=== PATIENT | female | born 1975 | race Caucasian/White ===

== ENCOUNTER 2017-05-09 11:01 | Emergency (ER) | payer MEDICAID ==
--- NOTE | 2017-05-09 12:09 | UC ---
Respiratory Complaint HPI - HPI Summary HPI Summary: cough x 10 days + chest congestion , wheezing , nasal congestion , pnd no fever, no chills , no sob - History of Current Complaint Chief Complaint: UCRespiratory Stated Complaint: CONGESTION COUGH SINUS Time Seen by Provider: 05/09/17 12:01 Hx Obtained From: Patient Hx Last Menstrual Period: unknown, uterine ablation ?: No Onset/Duration: Gradual Onset, Lasting Days - 10, Still Present Timing: Constant Severity Initially: Moderate Severity Currently: Moderate Character: Cough: Nonproductive Aggravating Factors: Exertion, Deep Breaths Alleviating Factors: Nothing Associated Signs And Symptoms: Positive: Wheezing, URI, Nasal Congestion, Sinus Discomfort. Negative: Dyspnea, Fever, Chills, Pleuritic Chest Pain, Hemoptysis , Dizziness, Calf Pain, Calf Swelling, Edema - Allergies/Home Medications Allergies/Adverse Reactions: Allergies Allergy/AdvReac Type Severity Reaction Status Date / Time No Known Allergies Allergy Verified 05/09/17 11:27 Home Medications: Home Medications Albuterol HFA INHALER* [Ventolin HFA Inhaler*] 2 puff INH Q6H 05/09/17 [History Confirmed 05/09/17] Benzonatate CAP* [Tessalon 100 MG CAP*] 100 mg PO TID 05/09/17 [History Confirmed 05/09/17] Fluticasone NASAL * [Flonase *] 2 spray BOTH NARES DAILY 05/09/17 [History Confirmed 05/09/17] Hchwwcaxvzqpr-Muyyaxdyuz-Ohyyc [Vicks Dayquil/Nyquil Cold] 1 mis PO DAILY WITH MEAL 05/09/17 [History Confirmed 05/09/17] PMH/Surg Hx/FS Hx/Imm Hx Previously Healthy: Yes - Surgical History Surgical History: Yes Surgery Procedure, Year, and Place: uterine ablation. appendectomy. choley. tubal ligation - Family History Known Family History: Negative: Diabetes - Social History Alcohol Use: Occasionally Substance Use Type: None Smoking Status (MU): Heavy Every Day Tobacco Smoker Type: Cigarettes Amount Used/How Often: 1/2 ppd - Immunization History Most Recent Influenza Vaccination: no Review of Systems Constitutional: Negative Skin: Negative Eyes: Negative ENT: Nasal Discharge, Sinus Congestion, Sinus Pain/Tenderness Respiratory: Cough Cardiovascular: Negative Is Patient Immunocompromised?: No All Other Systems Reviewed And Are Negative: Yes Physical Exam Triage Information Reviewed: Yes Appearance: Well-Appearing, No Pain Distress, Well-Nourished Vital Signs: Initial Vital Signs Temp 97.8 F 05/09/17 11:23 Pulse 66 05/09/17 11:23 Resp 16 05/09/17 11:23 BP 116/73 05/09/17 11:23 Pulse Ox 100 05/09/17 11:23 Vital Signs Reviewed: Yes Eyes: Positive: Conjunctiva Clear ENT: Positive: Normal ENT inspection, Pharyngeal erythema, Nasal congestion, Nasal drainage Neck exam: Normal Neck: Positive: Supple, Nontender Respiratory: Positive: Chest non-tender, Lungs clear, Normal breath sounds Cardiovascular: Positive: RRR, No Murmur, Pulses Normal Skin Exam: Normal UC Diagnostic Evaluation - Laboratory O2 Sat by Pulse Oximetry: 100 Respiratory Course/Dx - Differential Dx/Diagnosis Provider Diagnoses: bronchitis Discharge - Discharge Plan Condition: Stable Disposition: HOME Prescriptions: Albuterol HFA INHALER* [Ventolin HFA Inhaler*] 2 puff INH Q6H PRN #1 mdi PRN Reason: Wheezing Azithromycin TAB* [Zithromax TAB (Z-JIMI) 250 mg #6 tabs] 2 tab PO .TODAY, THEN 1 DAILY #1 jimi Benzonatate [TESSALON 200 MG CAP] 200 mg PO Q8H #21 cap Patient Education Materials: Acute Bronchitis (ED) Referrals: Princess Armstrong PA [Primary Care Provider] - If Needed
== END 2017-05-09 12:12 | disposition home or self-care (01) ==
LOC: UCCORT 11:01
DX: J40 Bronchitis, not specified as acute or chronic (principal); F17.210 Nicotine dependence, cigarettes, uncomplicated
CPT/HCPCS: 99202; G0463

== ENCOUNTER 2017-08-31 07:58 | Emergency (ER) | payer OTHER ==
[2017-08-31 08:18] VITALS: BP 104/66
--- NOTE | 2017-08-31 09:26 | UC ---
Respiratory Complaint HPI - HPI Summary HPI Summary: 42F with cough. Pt went to her pcp on Monday, dx with bronchitis and was put on prednisone and zpak, tessalon pearls. pt is here for re-evaluation because she is not feeling better. States that she feels that her sx are more severe, wheezing a lot, pain in back and chest that is severe with coughing. Missed work. Cough not improved much. not worsen. no xray done. had ablation 2 years ago no . [ End ] - History of Current Complaint Chief Complaint: UCRespiratory Stated Complaint: COUGH Time Seen by Provider: 08/31/17 09:24 Hx Obtained From: Patient Hx Last Menstrual Period: ablasion Onset/Duration: Gradual Onset Timing: Constant Severity Initially: Moderate Severity Currently: Moderate Pain Intensity: 9 Character: Cough: Productive - Allergies/Home Medications Allergies/Adverse Reactions: Allergies Allergy/AdvReac Type Severity Reaction Status Date / Time No Known Allergies Allergy Verified 08/31/17 08:18 PMH/Surg Hx/FS Hx/Imm Hx Previously Healthy: Yes Respiratory History: Bronchitis - Surgical History Surgical History: Yes Surgery Procedure, Year, and Place: uterine ablation. appendectomy. choley. tubal ligation - Family History Known Family History: Negative: Diabetes - Social History Occupation: Employed Full-time Alcohol Use: Occasionally Substance Use Type: None Smoking Status (MU): Heavy Every Day Tobacco Smoker Type: Cigarettes Amount Used/How Often: 1/2 ppd Cessation Counseling: Patient Advised to Stop - Immunization History Most Recent Influenza Vaccination: no Review of Systems Constitutional: Fatigue ENT: Nasal Discharge, Sinus Congestion Respiratory: Cough - with wheeze Is Patient Immunocompromised?: No All Other Systems Reviewed And Are Negative: Yes Physical Exam Triage Information Reviewed: Yes Appearance: Well-Appearing, No Pain Distress, Well-Nourished Vital Signs: Initial Vital Signs Temp 98.9 F 08/31/17 08:13 Pulse 93 08/31/17 08:13 Resp 18 08/31/17 08:13 BP 104/66 08/31/17 08:13 Pulse Ox 96 08/31/17 08:13 Vital Signs Reviewed: Yes Eye Exam: Normal ENT Exam: Normal Dental Exam: Normal Neck exam: Normal Neck: Positive: 1 Respiratory Exam: Normal Respiratory: Positive: Chest non-tender, Lungs clear, Normal breath sounds, No respiratory distress, No accessory muscle use Cardiovascular Exam: Normal Musculoskeletal Exam: Normal Neurological Exam: Normal Psychological Exam: Normal Skin Exam: Normal UC Diagnostic Evaluation - Laboratory O2 Sat by Pulse Oximetry: 96 Respiratory Course/Dx - Course Course Of Treatment: IMPRESSION: NO ACTIVE DISEASE. - Differential Dx/Diagnosis Differential Diagnosis/HQI/PQRI: Bronchitis, Influenza, Lower Resp Infection, Sinusitis Provider Diagnoses: Bronchitis Discharge - Discharge Plan Condition: Good Disposition: HOME Prescriptions: Guaifenesin-Codeine [Cheratussin AC] 5 ml PO Q6H PRN #1 bottle MDD 20 PRN Reason: Cough Patient Education Materials: Acute Bronchitis (ED) Forms: *Work Release Referrals: Princess Armstrong PA [Primary Care Provider] - 4 Days
--- NOTE | 2017-08-31 09:51 | RAD ---
INDICATION: Cough COMPARISON: None TECHNIQUE: PA and lateral dual-energy views were obtained. FINDINGS: Bones/Soft Tissues: There are no acute bony findings. Cardiomediastinal: The cardiomediastinal silhouette is normal. Lungs: There are no infiltrates. Pleura: There are no pleural effusions. Other: None IMPRESSION: NO ACTIVE DISEASE.
== END 2017-08-31 10:31 | disposition home or self-care (01) ==
LOC: UCCORT 07:58
DX: J40 Bronchitis, not specified as acute or chronic (principal); F17.210 Nicotine dependence, cigarettes, uncomplicated
CPT/HCPCS: 71046; 99212; G0463

== ENCOUNTER 2018-05-06 17:20 | Emergency (ER) | payer SELFPAY ==
[2018-05-06] MEDS ORDERED: Albuterol 2.5 MG/3 ML NEB.SOL* (0.083%) INH ONE (17:41)
[2018-05-06] MEDS ORDERED: methylPREDNISolone 125 MG* 2 ML VIAL IV ONE (17:56)
--- NOTE | 2018-05-06 18:08 | RAD ---
INDICATION: Chest pain, cough, shortness of breath. History of asthma and tobacco use. COMPARISON: August 31, 2017 TECHNIQUE: Dual energy PA and routine lateral views of the chest were obtained. REPORT: Elevated lung volumes. No focal pulmonary lesion, compelling alveolar consolidation, pleural effusion, pneumothorax. The heart, pulmonary vasculature, and mediastinal contours are unremarkable. Unremarkable soft tissue contours and osseous structures. IMPRESSION: #. Stigmata of obstructive lung disease. No acute pulmonary or cardiac process evident.
[2018-05-06 18:49] VITALS: BP 151/70
--- NOTE | 2018-05-06 18:55 | ED ---
Respiratory - HPI Summary HPI Summary: started as sore throat days ago , now with increasing shortness of breath and wheezing with no improvement with multiple doses of albuterol - History of Current Complaint Chief Complaint: UCRespiratory Stated Complaint: DIFFICULTY BREATHING Time Seen by Provider: 05/06/18 17:24 Hx Obtained From: Patient Onset/Duration: Sudden Onset Timing: Constant Initial Severity: Severe Current Severity: Severe Pain Intensity: 0 Character: Wheezing, Cough (Nonproductive) Sputum Amount: None Aggravating Factor(s): Nothing Alleviating Factor(s): Nothing Associated Signs and Symptoms: SOB - Risk Factors Status Asthmaticus Risk Factors: Negative Pulmonary Embolism Risk Factors: Negative Cardiac Risk Factors: Negative Pseudomonas Risk Factors: Negative - Allergy/Home Medications Allergies/Adverse Reactions: Allergies Allergy/AdvReac Type Severity Reaction Status Date / Time bee venom protein (honey bee) Allergy Anaphylatic Verified 05/06/18 17:35 Shock seasonal Allergy Congestion Uncoded 05/06/18 17:34 Home Medications: Home Medications Albuterol 2.5MG/3ML (0.083%)* [Ventolin 2.5 MG/3 ML NEB.ELAINA*] 2.5 mg INH Q6H PRN 05/06/18 [History Confirmed 05/06/18] guaiFENesin [Mucinex] 1,200 mg PO ONCE PRN 05/06/18 [History Confirmed 05/06/18] PMH/Surg Hx/FS Hx/Imm Hx Previously Healthy: Yes - long time smoker 1ppd Respiratory History: Reports: Hx Asthma, Hx Chronic Obstructive Pulmonary Disease (COPD) - Surgical History Surgery Procedure, Year, and Place: uterine ablation. appendectomy. choley. tubal ligation Infectious Disease History: No Infectious Disease History: Denies: Traveled Outside the [place] in Last 30 Days - Family History Known Family History: Negative: Diabetes - Social History Alcohol Use: Occasionally Substance Use Type: Reports: None Smoking Status (MU): Light Every Day Tobacco Smoker Type: Cigarettes Amount Used/How Often: 1/2 ppd Review of Systems All Other Systems Reviewed And Are Negative: Yes Physical Exam Triage Information Reviewed: Yes Vital Signs On Initial Exam: Initial Vitals Temp Pulse Resp BP Pulse Ox 36.7 C 89 20 138/67 92 05/06/18 17:28 05/06/18 17:28 05/06/18 17:28 05/06/18 17:28 05/06/18 17:28 Vital Signs Reviewed: Yes Appearance: Positive: Ill-Appearing Skin: Positive: Warm Head/Face: Positive: Normal Head/Face Inspection Eyes: Positive: Normal ENT: Positive: Normal ENT inspection Neck: Positive: Supple Respiratory/Lung Sounds: Positive: Wheezes Cardiovascular: Positive: Normal Abdomen Description: Positive: Nontender Bowel Sounds: Positive: Present Musculoskeletal: Positive: Normal Diagnostics - Vital Signs Vital Signs Temp Pulse Resp BP Pulse Ox 05/06/18 18:48 37.6 C 95 16 151/70 95 05/06/18 17:28 36.7 C 89 20 138/67 92 - Laboratory Lab Results: Lab Results 05/06/18 Range/Units 17:50 Influenza A (Rapid) Negative (Negative) Influenza B (Rapid) Negative (Negative) Lab Statement: Any lab studies that have been ordered have been reviewed, and results considered in the medical decision making process. Disposition - Diagnoses Provider Diagnoses: COPD with exacerbation Is Visit Related: No Discharge - Sign-Out/Discharge Documenting (check all that apply): Patient Departure All imaging exams completed and their final reports reviewed: Yes - Discharge Plan Condition: Guarded Disposition: ADMITTED TO OTHER HOSPITAL Referrals: Princess Armstrong PA [Primary Care Provider] - - Billing Disposition and Condition Condition: GUARDED Disposition: Admitted to Other Hospital
== END 2018-05-06 18:55 | disposition short-term general hospital (02) ==
LOC: UCCORT 17:20
DX: J44.1 Chronic obstructive pulmonary disease with (acute) exacerbation (principal); F17.210 Nicotine dependence, cigarettes, uncomplicated
CPT/HCPCS: 71046; 96372; 99213; G0463; J2930